=== PATIENT | male | born 1990 | race American Indian/Alaskan Native ===

== ENCOUNTER 2017-07-19 18:22 | Emergency (ER) | payer BC ==
[2017-07-19 18:31] VITALS: RESP 18; TEMP 98.2
--- NOTE | 2017-07-19 19:09 | ED PDOC ---
Arrival/HPI - General Chief Complaint: Shortness Of Breath Time Seen by Provider: 07/19/17 18:26 Historian: Patient - History of Present Illness Narrative History of Present Illness (Text): 07/19/17 19:04 This 26 yo obese male with pmh panic attack, presents to this Emergency department complaining of intermittent substernal chest pressure x 2 weeks. Patient stated he also feels mild shortness of breath. 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 Patient denies palpitation, fever, hemoptysis, abnormal gait, dizziness, headache, or abdominal pain. Patient admits going back to the gym x 4 weeks ago. "Doing a lot of bench pressing" Time/Duration: Other (see hpi) Quality: Aching Context: Home Past Medical History - Provider Review Nursing Documentation Reviewed: Yes - Psychiatric Hx Psychophysiologic Disorder: Yes Hx Anxiety: Yes Hx Substance Use: No Family/Social History - Physician Review Nursing Documentation Reviewed: Yes Family/Social History: Other (noncontributory) Smoking Status: Never Smoked Hx Alcohol Use: Yes Frequency of alcohol use: Socially Hx Substance Use: No Allergies/Home Meds Allergies/Adverse Reactions: Allergies tree nut Allergy (Verified 07/19/17 18:26) ANGIOEDEMA Review of Systems - Review of Systems Constitutional: Normal. absent: Fatigue, Weight Change, Fevers Eyes: Normal ENT: Normal Respiratory: SOB. absent: Cough, Sputum, Wheezing Cardiovascular: Chest Pain. absent: Palpitations, Edema, Calf Pain, MOULTON, Orthopnea, Syncope Gastrointestinal: Normal. absent: Abdominal Pain, Nausea, Vomiting Genitourinary Male: Normal. absent: Dysuria, Frequency, Hematuria Musculoskeletal: Normal Skin: Normal Neurological: Normal. absent: Headache, Dizziness, Focal Weakness Endocrine: Normal Hemo/Lymphatic: Normal Psychiatric: Normal Physical Exam Vital Signs Temp Pulse Resp BP Pulse Ox 07/19/17 20:18 81 18 130/71 97 07/19/17 18:42 18 99 07/19/17 18:27 98.2 F 98 H 18 127/81 97 Temperature: Afebrile Blood Pressure: Normal Pulse: Regular Respiratory Rate: Normal Appearance: Positive for: Well-Appearing, Non-Toxic, Comfortable Pain Distress: None Mental Status: Positive for: Alert and Oriented X 3 - Systems Exam Head: Present: Atraumatic, Normocephalic Pupils: Present: PERRL Extroacular Muscles: Present: EOMI Conjunctiva: Present: Normal Mouth: Present: Moist Mucous Membranes Neck: Present: Normal Range of Motion Respiratory/Chest: Present: Clear to Auscultation, Good Air Exchange. No: Respiratory Distress, Accessory Muscle Use Cardiovascular: Present: Regular Rate and Rhythm, Normal S1, S2. No: Murmurs Abdomen: No: Tenderness, Distention, Peritoneal Signs Back: Present: Normal Inspection Upper Extremity: Present: Normal Inspection. No: Cyanosis, Edema Lower Extremity: Present: Normal Inspection. No: Edema Neurological: Present: GCS=15, CN II-XII Intact, Speech Normal Skin: Present: Warm, Dry, Normal Color. No: Rashes Psychiatric: Present: Alert, Oriented x 3, Normal Insight, Normal Concentration Medical Decision Making ED Course and Treatment: 07/19/17 22:39 Re-evaluation. Patient feels better. Discussed results and plan with patient who expresses understanding. All questions answered and there is agreement with the plan to discharge home with instructions. Patient stable for discharge. Return if symptoms persist or worsen. Patient came complaining of pressure like chest pain x 2 weeks. Patient stated chest pain has been intermittent, but he gets multiple episodes of chest pain during the day. Labs, CT scan, EKG were unremarkable. Troponin was negative. Patient was recommended to f/u PMD for revaluation in 1 day. To return to emergency if symptoms worsen. Re-evaluation Time: 22:39 Reassessment Condition: Re-examined, Improved - Lab Interpretations Lab Results: 07/19/17 19:35 07/19/17 19:35 Lab Results 07/19/17 19:35: Sodium 144, Potassium 4.1, Chloride 105, Carbon Dioxide 28, Anion Gap 15, BUN 15, Creatinine 1.1, Est GFR ( Amer) > 60, Est GFR (Non- Af Amer) > 60, Random Glucose 89, Calcium 10.1, Magnesium 1.9, Total Bilirubin 0.2, AST 47, ALT 66 H, Alkaline Phosphatase 53, Lactate Dehydrogenase 489, Total Creatine Kinase 364 H, CK-MB (CK-2) 1.4, CK-MB (CK-2) % Cancelled, Troponin I < 0.01, Total Protein 7.4, Albumin 4.3, Globulin 3.2, Albumin/ Globulin Ratio 1.4, Lipase 63 07/19/17 19:35: PT 12.8 H, INR 1.12 H, APTT 34.4 07/19/17 19:35: WBC 10.4, RBC 5.50, Hgb 14.0, Hct 42.5, MCV 77.3 L, MCH 25.5, MCHC 32.9, RDW 14.1, Plt Count 320, MPV 9.5, Gran % 65.3, Lymph % (Auto) 27.3, Mckean % (Auto) 5.2, Eos % (Auto) 1.9, Baso % (Auto) 0.3, Gran # 6.78 H, Lymph # ( Auto) 2.8, Mckean # (Auto) 0.5, Eos # (Auto) 0.2, Baso # (Auto) 0.03 I have reviewed the lab results: Yes Interpretation: No clinic. lab abnormalty - RAD Interpretation Narrative RAD Interpretations (Text): 07/19/17 22:40 CT Scan ANGIO CHEST PE PROTOCOL Exam Date: 07/19/17 No relevant prior studies available. FINDINGS: Pulmonary arteries: Unremarkable. No pulmonary embolism. Aorta: No acute findings. No thoracic aortic aneurysm. Lungs: Unremarkable. No mass. No consolidation. Pleural space: Unremarkable. No significant effusion. No pneumothorax. Heart: Unremarkable. No cardiomegaly. No significant pericardial effusion. No evidence of RV dysfunction. Bones/joints: No acute fracture. No dislocation. Soft tissues: Unremarkable. Lymph nodes: Unremarkable. No enlarged lymph nodes. IMPRESSION: Unremarkable chest CTA. No pulmonary embolism. Dictated By: Kenia Butler MD Radiology Orders: 07/19/17 19:16 ANGIO CHEST PE PROTOCOL [CT] Stat 07/19/17 19:17 CHEST PORTABLE [RAD] Stat - EKG Interpretation Interpreted by ED Physician: Yes (NSR @ [address] changes) Type: 12 lead EKG Comparison: No previous EKG avail. TOMMY Risk Score for UA/NSTEMI - TOMMY Risk Score Age > 64: NO 3 or more CAD Risk Factors: NO Known CAD (Stenosis greater than 50%): NO Aspirin use in past 7 days: NO Severe Angina: NO EKG ST changes greater than 0.5mm: NO Positive Cardiac Marker: NO TOMMY Score: 0 % risk at 14 days of: all cause mortality, new or recurrent CT, or severe recurrent ischemia requiring urgen revascularization: 5% Wells Criteria for PE - Wells Criteria for Pulmonary Embolism Clinical Signs and Symptoms of DVT: No P.E is #1 Diagnosis, or Equally Likely: No Heart Rate >100: No Immobilization at least 3 days;Surgery previous 4 weeks: No Previous, objectively diagnosed PE or DVT: No Hemoptysis: No Malignancy w/treatment within 6 months, or palliative: No Total Score: 0 Disposition/Present on Arrival - Present on Arrival Any Indicators Present on Arrival: No History of DVT/PE: No History of Uncontrolled Diabetes: No Urinary Catheter: No History of Decub. Ulcer: No History Surgical Site Infection Following: None - Disposition Have Diagnosis and Disposition been Completed?: Yes Diagnosis: Non-cardiac chest pain Disposition: HOME/ ROUTINE Disposition Time: 22:44 Patient Plan: Discharge Patient Problems: Current Active Problems Problem Status Onset Non-cardiac chest pain Acute Condition: IMPROVED Discharge Instructions (ExitCare): Chest Pain That Is Not Caused by the Heart ( DC) Additional Instructions: Call private doctor for follow up visit in 1-2 days. Take medication as instructed. Return to emergency if symptoms worsen. Prescriptions: Famotidine [Pepcid] 40 mg PO DAILY #10 tablet Naproxen 500 mg PO BID PRN #14 tab PRN Reason: Pain, Severe (8-10) Referrals: Pk Hendrix MD [Primary Care Provider] - Follow up with primary Forms: [employer] (Telugu), WORK NOTE
[2017-07-19 19:42] LABS: BASO # 0.03 K/mm3 (0.0-2.0); BASO % 0.3 % (0.0-3.0); EOS # 0.2 (0.0-0.7); EOS % 1.9 % (1.5-5.0); GRAN # 6.78 (1.4-6.5); GRAN % 65.3 % (50.0-68.0); LYMPH # 2.8 (1.2-3.4); LYMPH % 27.3 % (22.0-35.0); MEAN CELL VOLUME 77.3 fl (80.0-105.0); MEAN CORPUSCULAR HEMOGLOBIN 25.5 pg (25.0-35.0); MEAN CORPUSCULAR HGB CONC 32.9 g/dl (31.0-37.0); MEAN PLATELET VOLUME 9.5 fl (7.0-11.0); MONO # 0.5 (0.1-0.6); MONO % 5.2 % (1.0-6.0); RBC 5.5 10^6/uL (3.5-6.1); RED CELL DISTRIBUTION WIDTH 14.1 % (11.5-14.5); WHITE BLOOD COUNT 10.4 10^3/ul (4.5-11.0)
[2017-07-19 19:51] LABS: INR 1.12 (0.93-1.08); PARTIAL THROMBOPLASTIN TIME 34.4 Seconds (25.1-36.5); PROTHROMBIN TIME 12.8 SECONDS (9.4-12.5)
[2017-07-19 19:56] LABS: ALB/GLOB RATIO 1.4 (1.1-1.8); ALBUMIN 4.3 g/dL (3.0-4.8); ALT/SGPT 66 U/L (7-56); AST/SGOT 47 U/L (17-59); BLOOD UREA NITROGEN 15 mg/dL (7-21); CALCIUM 10.1 mg/dL (8.4-10.5); GFR AFRICAN-AMERICAN > 60; GFR NON-AFRICAN AMERICAN > 60; LIPASE 63 U/L (23-300)
[2017-07-19 20:07] LABS: TROPONIN I < 0.01 ng/mL
[2017-07-19 20:11] LABS: CK-MB 1.4 ng/mL (0.0-3.6)
--- NOTE | 2017-07-19 22:33 | CT ---
EXAM: CT Angiography Chest With Intravenous Contrast CLINICAL HISTORY: 26 years old, male; Pain; Chest pain and other: SOB; Type not specified; Additional info: Chest pain R/O pe TECHNIQUE: Axial computed tomographic angiography images of the chest with intravenous contrast using pulmonary embolism protocol. All CT scans at this facility use one or more dose reduction techniques, viz.: automated exposure control; ma/kV adjustment per patient size (including targeted exams where dose is matched to indication; i.e. head); or iterative reconstruction technique. MIP reconstructed images were created and reviewed. Coronal and sagittal reformatted images were created and reviewed. CONTRAST: 147 mL of OMNIPAQUE 350 administered intravenously. COMPARISON: No relevant prior studies available. FINDINGS: Pulmonary arteries: Unremarkable. No pulmonary embolism. Aorta: No acute findings. No thoracic aortic aneurysm. Lungs: Unremarkable. No mass. No consolidation. Pleural space: Unremarkable. No significant effusion. No pneumothorax. Heart: Unremarkable. No cardiomegaly. No significant pericardial effusion. No evidence of RV dysfunction. Bones/joints: No acute fracture. No dislocation. Soft tissues: Unremarkable. Lymph nodes: Unremarkable. No enlarged lymph nodes. IMPRESSION: Unremarkable chest CTA. No pulmonary embolism.
[2017-07-19 22:56] VITALS: BP 141/81; PULSE 79; O2SAT 99
--- NOTE | 2017-07-20 08:00 | RAD ---
HISTORY: CP COMPARISON: No prior. FINDINGS: LUNGS: No active pulmonary disease. PLEURA: No significant pleural effusion identified, no pneumothorax apparent. CARDIOVASCULAR: Normal. OSSEOUS STRUCTURES: No significant abnormalities. VISUALIZED UPPER ABDOMEN: Normal. OTHER FINDINGS: None. IMPRESSION: No active disease.
--- NOTE | 2017-07-20 09:57 | CARD ---
APPROVED REPORT EKG Measurement Heart [id number] PM104V-3 [id number] <Conclusion> Normal sinus rhythm with sinus arrhythmia Nonspecific T wave abnormality
== END 2017-07-19 22:55 | disposition home or self-care (01) ==
LOC: MERGE 18:22 → ED 18:22
DX: R07.89 Other chest pain (principal)
CPT/HCPCS: 71045; 71275; 80053; 82550; 82553; 83615; 83690; 83735; 84484; 85025; 85610; 85730; 93005; 99284; Q9967

== ENCOUNTER 2018-06-09 01:14 | Emergency (ER) | payer BC | END 2018-06-09 02:00 | disposition left against medical advice (07) | LOC: ED 01:14 | DX: Z02.89 Encounter for other administrative examinations (principal); R05 Cough ==